=== PATIENT | female | born 1970 | race Caucasian/White ===

== ENCOUNTER → 2017-02-15 | Outpatient (CLI) | payer OTHER ==
[~2017-02-15] MED LIST: AMOX500C PO; FERR325T PO; FIBE625T3 PO; JUNETAB2 PO; PANT20 PO; ZOVI400T PO
[2017-02-15 10:08] LABS: HEMATOCRIT 38.8 % (35.0-46.0); MEAN CELL VOLUME 92.9 FL (80.0-100.0); MEAN CORPUSCULAR HEMOGLOBIN 31.3 PG (27.0-34.0); MEAN CORPUSCULAR HGB CONC 33.7 % (32.0-36.0); PLATELET COUNT 351 TH/MM3 (150-450); RED BLOOD COUNT 4.17 MIL/MM3 (4.00-5.30); RED CELL DISTRIBUTION WIDTH 12.5 % (11.6-17.2); REVIEW FLAG FINAL; WHITE BLOOD COUNT 7.3 TH/MM3 (4.0-11.0)
== END ==
LOC: CPRE 09:30
PROVIDERS: ATTEND Obstetrics & Gynecology
DX: N93.9 Abnormal uterine and vaginal bleeding, unspecified (principal); D25.9 Leiomyoma of uterus, unspecified
CPT/HCPCS: 36415; 84703; 85027

== ENCOUNTER 2017-02-21 07:58 | Observation (INO) | payer OTHER ==
[~2017-02-21] VITALS: Ht 162.6 cm; Wt 74.6 kg
[~2017-02-21 07:58] MED LIST changes: -AMOX500C PO; -FIBE625T3 PO
[2017-02-21 08:44] VITALS: BP 125/86; PULSE 63; RESP 16; TEMP 98.8; O2SAT 99
[2017-02-21] MEDS ORDERED: ONDANSETRON HCL 4 MG/2 ML VIAL IV PUSH SCH (08:45)
[2017-02-21] MEDS ORDERED: SODIUM CHLORID 0.9% 500 ML IV SCH (08:45)
[2017-02-21] MEDS ORDERED: ceFAZolin 1,000 MG/NS 100 ML IV SCH ×2 (08:45)
[2017-02-21] MEDS ORDERED: LACTATED RINGER'S 1000 ML IV SCH (08:45)
[2017-02-21] MEDS ORDERED: INSULIN HUMAN REGULAR 1,000 UNITS/10 ML VIAL SQ PRN (08:45)
[2017-02-21] MEDS ORDERED: METOPROLOL TARTRATE 25 MG TAB PO PRN (08:45)
[2017-02-21] MEDS ORDERED: MIDAZOLAM HCL 2 MG/2 ML VIAL IV SCH (08:45)
[2017-02-21] MEDS ORDERED: AMOX500C PO (08:54)
[2017-02-21] MEDS ORDERED: FIBE625T3 PO (08:54)
[2017-02-21] MEDS ORDERED: ONDANSETRON HCL 4 MG/2 ML VIAL IV PUSH ONE (08:59)
[2017-02-21] MEDS ORDERED: PROPOFOL 200 MG/20 ML AMP IV ONE (08:59)
[2017-02-21] MEDS ORDERED: KETOROLAC TROMETHAMINE 60 MG/2 ML (IM) VIAL IM ONE (08:59)
[2017-02-21] MEDS ORDERED: NEOSTIGMINE 3 MG/3 ML SYR IV ONE (08:59)
[2017-02-21] MEDS ORDERED: ACETAMINOPHEN 1000 MG/100 ML VIAL IV ONE (09:18)
[2017-02-21] MEDS ORDERED: FAMOTIDINE 20 MG/2 ML VIAL ONE (09:19)
[2017-02-21] MEDS ORDERED: HYDROmorphone HCL PF 2 MG/ML VIAL ONE (09:19)
[2017-02-21] MEDS ORDERED: MIDAZOLAM HCL 2 MG/2 ML VIAL ONE (09:19)
[2017-02-21] MEDS ORDERED: fentaNYL CITRATE 250 MCG/5 ML AMP ONE (09:19)
[2017-02-21] MEDS ORDERED: VASOPRESSIN INJ 20 UNITS/ML VIAL ONE (09:20)
[2017-02-21] MEDS ORDERED: MORPHINE SULFATE 30 MG/30 ML PCA ONE (11:20)
[2017-02-21] MEDS ORDERED: NALOXONE HCL 0.4 MG/ML AMP IV PRN (11:45)
[2017-02-21] MEDS: DEXT 5%-NACL 0.45% 1000 ML INJ 1,000 ML IV SCH ×2 (11:45→19:45)
[2017-02-21] MEDS ORDERED: MORPHINE SULFATE 30 MG/30 ML PCA IV SCH (11:45)
[2017-02-21] MEDS ORDERED: DO NOT ADM ANY ANTICOAGULANT DRUGS XX PRN (11:45)
[2017-02-21] MEDS ORDERED: diphenhydrAMINE HCL 50 MG/ML VIAL IV PUSH PRN (11:45)
[2017-02-21] MEDS ORDERED: ONDANSETRON HCL 4 MG/2 ML VIAL IV PUSH PRN (11:45)
[2017-02-21 13:30] VITALS: BP 121/84; PULSE 70; RESP 20; TEMP 97.5; O2SAT 98
[2017-02-21 16:00] VITALS: BP 110/76; PULSE 86; RESP 20; TEMP 98.1; O2SAT 97
[2017-02-21 16:14] VITALS: BP 117/81; PULSE 94; RESP 20; TEMP 97.6; O2SAT 98
[2017-02-21 20:00] VITALS: BP 124/86; PULSE 90; RESP 18; TEMP 97.7; O2SAT 94
[2017-02-21] MEDS: PCA - TOTAL MG MORPHINE DELIVERED PER SHIFT SCH (21:55)
[2017-02-21] MEDS: oxyCODONE/ACETAMINOPHEN 5 MG/325 MG TAB PO PRN (23:54)
[2017-02-22] VITALS: BP 110/71; PULSE 104; RESP 16; TEMP 97.7; O2SAT 96
[2017-02-22] MEDS: DEXT 5%-NACL 0.45% 1000 ML INJ 1,000 ML IV SCH (03:45)
[2017-02-22 04:00] VITALS: BP 125/74; PULSE 74; RESP 16; TEMP 97; O2SAT 97
[2017-02-22] MEDS: PCA - TOTAL MG MORPHINE DELIVERED PER SHIFT SCH (06:00)
[2017-02-22 06:59] LABS: HEMATOCRIT 33.3 % (35.0-46.0); REVIEW FLAG FINAL
[2017-02-22 08:00] VITALS: BP 114/88; PULSE 72; RESP 20; TEMP 96.9; O2SAT 98
[2017-02-22] MEDS: oxyCODONE/ACETAMINOPHEN 5 MG/325 MG TAB PO PRN (08:04)
[2017-02-22 12:00] VITALS: BP 121/78; PULSE 65; RESP 18; TEMP 97.1; O2SAT 96
[2017-02-22] MEDS ORDERED: diphenhydrAMINE HCL 25 MG CAP PO ONE ×2 (12:00)
--- NOTE | 2017-02-23 10:09 | MP ---
cc: EFREN PUCKETT DATE OF SURGERY 02/21/2017 PREOPERATIVE DIAGNOSIS Leiomyomata uteri, menorrhagia. POSTOPERATIVE DIAGNOSIS Leiomyomata uteri, menorrhagia. PROCEDURE Laparoscopic-assisted supracervical hysterectomy SURGEON Efren Puckett MD ANESTHESIA General ESTIMATED BLOOD LOSS 50 cc COMPLICATIONS None FINDINGS The patient had a uterus that was approximately eight weeks size with a large 4 x 5 cm anterior fundal benign-appearing fibroid. There were a few smaller sub-centimeter fibroids noted. The fallopian tubes and ovaries were unremarkable. The appendix was retrocecal. The liver was grossly normal. I could not visualize the gallbladder. DESCRIPTION OF THE PROCEDURE The patient was brought into the operating room and following general anesthesia was placed in the dorsal lithotomy position. Her vagina, abdomen and perineum were prepped and draped. Ernandez catheter was placed in the bladder and the HUMI catheter into the uterus. A 1 cm subumbilical skin incision was made. The Veress needle was inserted and three liters of CO2 was infused into the abdomen. The Veress needle was then removed the laparoscope was placed without difficulty. A second and third puncture site were created under direct visualization. The findings were as noted above. The harmonic scalpel was used to clamp, cut and seal the round ligaments and upper broad ligaments. The bladder peritoneum was incised and the bladder was sharply dissected off the anterior cervix. The uterine vessels were skeletonized and then clamped, cut and sealed with the harmonic scalpel. The Loop was brought into place and the cervix was transected across the upper portion with the Loop. Some minor bleeding in the cervical stump was cauterized as was the endocervical canal. The uterus was then morcellated and removed. The tubes were then sealed across the mesosalpinx and removed. The pelvis was copiously irrigated and hemostasis was noted at all sites. Photos of all areas were taken. All instruments removed and the CO2 gas was allowed to escape. The incisions were then closed with a subcuticular 4-0 Vicryl stitch. The patient then taken to the recovery room in good condition with all counts correct and clear urine draining in her Ernandez catheter. Efren Puckett MD TGS/NANCY /11:14 AM /9:54 AM
== END 2017-02-22 13:07 | disposition home or self-care (01) ==
LOC: HSDC 07:58 → EDUNIT# 10:30 → HOCA 13:45
PROVIDERS: ADMIT Obstetrics & Gynecology; ATTEND Obstetrics & Gynecology
DX: D25.9 Leiomyoma of uterus, unspecified (principal); N80.0 Endometriosis of uterus
CPT/HCPCS: 00840; 58542; 85014; 85018; 86850; 86900; 86901; 88307; G0378; J0131; J0690; J1885; J2250; J2270; J2405; J2710; J3010; J7120; J1170